=== PATIENT | female | born 1955 | race Two or more races ===

== ENCOUNTER 2021-11-13 12:00 | Inpatient (IN) | payer OTHER ==
[~2021-11-13] VITALS: Ht 154.9 cm; Wt 73.0 kg
[2021-11-13] MEDS ORDERED: ROSUVASTA PO (14:40)
[2021-11-13] MEDS ORDERED: COZAAR100 MG PO (14:40)
[2021-11-13] MEDS ORDERED: ALBUTER IH (14:41)
[2021-11-18] MEDS ORDERED: PROAIR HFA8.5 GM (07:49)
[2021-11-18] MEDS ORDERED: TRELEGY ELLIPT1 EACH (07:50)
[2021-11-18] MEDS ORDERED: NABUMETONE750 MG (07:50)
[2021-11-18] MEDS ORDERED: BACLOFEN20 MG (07:50)
[2021-11-18] MEDS ORDERED: SIMVASTATIN20 MG (07:50)
[2021-11-18] MEDS ORDERED: CRESTOR5 MG (07:53)
[2021-11-20] MEDS ORDERED: PERCOCET 5-3251 EACH PO (13:47)
== END 2021-11-20 17:40 | disposition home or self-care (01) | DRG 331 ==
LOC: O/R 11-18 06:00 → SURH 11-18 06:00 → EDBD 11-18 12:00 → SURH 11-20 17:40
PROVIDERS: ADMIT Surgery; ATTEND Surgery
PROC: 0DBP4ZZ Excision of Rectum, Percutaneous Endoscopic Approach (ICD-10-PCS; 2021-11-18)
PROC: 0DJD8ZZ Inspection of Lower Intestinal Tract, Via Natural or Artificial Opening Endoscopic (ICD-10-PCS; 2021-11-18)
PROC: 4A12X4Z Monitoring of Cardiac Electrical Activity, External Approach (ICD-10-PCS; 2021-11-18)
PROC: 0DTN4ZZ Resection of Sigmoid Colon, Percutaneous Endoscopic Approach (ICD-10-PCS; principal; 2021-11-18 07:00)
DX: K57.32 Diverticulitis of large intestine without perforation or abscess without bleeding (principal); R10.32 Left lower quadrant pain; K59.09 Other constipation; I11.9 Hypertensive heart disease without heart failure